=== PATIENT | male | born 1975 | race Asian ===

== ENCOUNTER 2022-01-28 05:57 | Day surgery (SDC) | payer BC ==
[2022-01-24 13:48] VITALS: BMI 26.4
[2022-01-28] MEDS ORDERED: PROPOFOL 60 ML ONE (08:08)
[2022-01-28] MEDS ORDERED: PHENYLEPHRINE-NS 100 MCG/ML 10 ML SYRINGE ONE (08:28)
== END 2022-01-28 09:05 | disposition home or self-care (01) ==
LOC: CSHSDC 05:57
PROVIDERS: ATTEND Internal Medicine Gastroenterology
PROC: 0DJD8ZZ Inspection of Lower Intestinal Tract, Via Natural or Artificial Opening Endoscopic (ICD-10-PCS; principal; 2022-01-28)
DX: Z12.11 Encounter for screening for malignant neoplasm of colon (principal); Z87.891 Personal history of nicotine dependence
CPT/HCPCS: J2704